=== PATIENT | female | born 1975 | race Caucasian/White ===

== ENCOUNTER → 2017-08-15 | Outpatient (CLI) | payer BC ==
[2017-08-15 13:14] LABS: HEMOGLOBIN 9.7 gm/dl (12.3-15.3); RED BLOOD COUNT 3.34 M/UL (4.00-5.10); WHITE BLOOD COUNT 1.9 K/UL (4.5-11.0)
== END ==
LOC: LAB 11:45
PROVIDERS: Physician Assistant
DX: R55 Syncope and collapse (principal)
CPT/HCPCS: 36415; 85025